=== PATIENT | male | born 1970 | race Two or more races ===

== ENCOUNTER 2017-01-28 15:54 | Emergency (ER) | payer OTHER ==
[~2017-01-28] VITALS: Ht 20.3 cm; Wt 90.7 kg
[2017-01-28 16:20] VITALS: BP 112/73
[2017-01-28] MEDS ORDERED: KETOROLAC TROMETH 60MG/2ML VIAL IM ONE (19:00)
[2017-01-28 19:03] LABS: Urine Bilirubin Negative (Negative); Urine Blood Negative /uL (Negative); Urine Color Yellow (Yellow); Urine Glucose Normal (Normal); Urine Ketone Negative (Negative); Urine Nitrite Negative (Negative); Urine RBC <1 /hpf (0 - 3); Urine Squamous Epithelial Cell FEW /hpf (<5); Urine Urobilinogen Normal (Negative); Urine pH 5.5 (5.0-8.0)
== END 2017-01-28 19:38 | disposition home or self-care (01) ==
LOC: ER 16:00
DX: M79.606 Pain in leg, unspecified (principal); M54.5 Low back pain
CPT/HCPCS: 81001; 96372; 99283; J1885